=== PATIENT | male | born 1955 | race Caucasian/White ===

== ENCOUNTER 2017-02-20 15:43 | Inpatient (IN) | payer BC ==
[~2017-02-20] VITALS: Ht 193 cm; Wt 149.0 kg
--- NOTE | 2017-02-20 16:23 | NUR ---
EKG IN PROGRESS, DR HUFFMAN AT BEDSIDE FOR MSE
--- NOTE | 2017-02-20 16:37 | NUR ---
DR LOPEZ AT BEDSIDE
[2017-02-20 16:49] LABS: BASOPHIL % 0.4 % (0-2); PLATELET COUNT 217 x10^3mcL (130-400); RED CELL DISTRIBUTION WIDTH 13.6 % (11.5-14.5)
[2017-02-20 16:51] LABS: CALCIUM 8.3 mg/dL (8.5-10.1); CARBON DIOXIDE 26.1 mmol/L (21-32); CHLORIDE SERUM 106 mmol/L (98-107); CREATININE SERUM 1.1 mg/dL (0.7-1.3); GFR1 > 60 mL/min; GLUCOSE SERUM 88 mg/dL (74-106); POTASSIUM SERUM 4.3 mmol/L (3.5-5.1); SODIUM SERUM 139 mmol/L (136-145)
[2017-02-20 16:56] LABS: ALBUMIN 3.6 g/dL (3.4-5.0); ALKALINE PHOSPHATASE 94 U/L (46-116); ALT/SGPT 28 U/L (16-63); AST/SGOT 22 U/L (15-37); BILIRUBIN TOTAL 0.4 mg/dL (0.20-1.00); TOTAL PROTEIN, SERUM 6.7 g/dL (6.4-8.2)
--- NOTE | 2017-02-20 17:25 | NUR ---
PT TAKEN TO RADIOLOGY FOR CT
--- NOTE | 2017-02-20 18:04 | NUR ---
BACK FROM CT
[2017-02-20 18:46] LABS: CHOLESTEROL/HDL RATIO 4.3; PHOSPHOROUS 3.2 mg/dL (2.5-4.9)
--- NOTE | 2017-02-20 18:53 | NUR ---
PT ADMIT TO TELE BRIE 230B GAVE REPORT TO YU
[2017-02-20 18:56] LABS: FREE T4 0.87 ng/dL (0.76-1.46); FREE THYROXINE INDEX 2.1 ug/dL (1.4-4.5); T4(THYROXINE) 5.9 ug/dL (4.7-13.3)
--- NOTE | 2017-02-20 18:58 | NUR ---
REC'D PT FROM ER VIA [facility]. PT IS AAOX4. C/O MILD DIZZINESS. TELE #27 SR. RESP EVEN AND UNLABORED. NO SOB NOTED. PT C/O 2/10 CHEST PRESSURE. PT C/O LEFT ARM NUMBESS. 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 IV NOTED TO RAC. INTACT AND PATENT. ORIENTED PT TO CALL LIGHT. BED IN LOWEST POSITION. WILL ENDORSE TO PRIMARY RN.
[2017-02-20 19:19] LABS: T3 TOTAL 0.79 ng/mL
[2017-02-20] MEDS ORDERED: FLOMAX0.4 MG PO (19:21)
[2017-02-20 19:22] VITALS: BP 141/64
[2017-02-20] MEDS ORDERED: LORAZEPAM1 MG PO (19:22)
--- NOTE | 2017-02-20 20:00 | NUR ---
PT IS AAOX4. 27, NSR WITH A HR OF 87. LUNG SOUNDS ARE CTA ON RA. FAMILY AT BEDSIDE. THE PT IS IV ACCESS IN THE RAC, 20G THAT IS INFUSING 100 CC/HR OF NS. THE BED IS IN THE LOWEST POSITION, THE CALL LIGHT WITHIN REACH. WILL CONTINUE TO MONITOR.
[2017-02-20 20:24] VITALS: BP 120/70
[2017-02-20 21:31] LABS: microscopic required? NO
[2017-02-20 21:40] LABS: UA SPECIFIC GRAVITY <=1.005 (1.005-1.035); urine erythrocyte NEGATIVE (NEGATIVE)
--- NOTE | 2017-02-20 22:00 | NUR ---
PT IS RESTING IN BED WITH NO SIGNS OF ACUTE DISTRESS. EVEN, UNLABORED BREATHING. THE CALL LIGHT IS WITHIN REACH AND THE BED IS IN THE LOWEST POSITION. WILL CONTINUE TO MONITOR.
--- NOTE | 2017-02-21 | NUR ---
PT IS RESTING COMFORTABLY IN BED. NO ACUTE DISTRESS NOTED AT THIS TIME. BED IN LOWEST POSITION AND CALL LIGHT WITHIN REACH. WILL CONTINUE TO MONITOR.
--- NOTE | 2017-02-21 04:00 | NUR ---
PT RESTING IN BED COMFORTABLY IN BED. NO ACUTE DISTRESS NOTED AT THIS TIME. CALL LIGHT WITHIN REACH. WILL CONTINUE TO MONITOR.
[2017-02-21 05:28] VITALS: BP 114/64
--- NOTE | 2017-02-21 06:28 | NUR ---
PT IS RESTING COMFORTABLY IN BED. ALL NEEDS HAVE BEEN MET. THE CALL LIGHT IS WITHIN REACH. WILL ENDORSE TO MORNING SHIFT.
--- NOTE | 2017-02-21 06:45 | NUR ---
REPORT GIVEN TO SALOMON ENRIQUEZ. PT IN STABLE CONDITION. ROMEL CIFUENTES.
[2017-02-21 07:07] LABS: BASOPHIL % 0.3 % (0-2); PLATELET COUNT 185 x10^3mcL (130-400); RED CELL DISTRIBUTION WIDTH 13.7 % (11.5-14.5)
[2017-02-21 07:09] LABS: CALCIUM 7.9 mg/dL (8.5-10.1); CARBON DIOXIDE 24.1 mmol/L (21-32); CHLORIDE SERUM 108 mmol/L (98-107); CREATININE SERUM 1.1 mg/dL (0.7-1.3); GFR1 > 60 mL/min; GLUCOSE SERUM 95 mg/dL (74-106); PHOSPHOROUS 3.5 mg/dL (2.5-4.9); POTASSIUM SERUM 4.3 mmol/L (3.5-5.1); SODIUM SERUM 140 mmol/L (136-145)
[2017-02-21 09:12] VITALS: BP 127/56
--- NOTE | 2017-02-21 09:16 | NUR ---
PT ON BED, AWAKE, ALERT, AND ORIENTED. HAS NO COMPLAINT OF PAIN, SOB, OR DIZZINESS. RESPONDS WELL TO QUESTION AND ANSWER. CLEAR NEIL LUNG FIELD, SYMMETRICAL CHEST EXPANSION AND UNLABORED. NO GENERALIZED WEAKNESS NOTED. EQUAL STRENGTH. SIDE RAILS UP, CALL LIGHT WITHIN REACH, WILL CONTINUE TO MONITOR
[2017-02-21] MEDS ORDERED: ASPIR 8181 MG PO (10:41)
[2017-02-21] MEDS ORDERED: LIPI20 PO (10:44)
[2017-02-21 12:09] VITALS: BP 127/56
== END 2017-02-21 12:42 | disposition home or self-care (01) | DRG 69 ==
LOC: ED 15:43 → DU 18:06
PROVIDERS: Emergency Medicine; ADMIT Family Medicine
DX: G45.9 Transient cerebral ischemic attack, unspecified (principal); N17.0 Acute kidney failure with tubular necrosis; E86.0 Dehydration; M48.02 Spinal stenosis, cervical region; E83.51 Hypocalcemia; E78.1 Pure hyperglyceridemia; F41.9 Anxiety disorder, unspecified; N40.0 Benign prostatic hyperplasia without lower urinary tract symptoms; E87.8 Other disorders of electrolyte and fluid balance, not elsewhere classified
CPT/HCPCS: 83880; 84439; J1200; J7030; Q0092; Q9967

== ENCOUNTER 2017-10-09 16:09 | Emergency (ER) | payer BC ==
[~2017-10-09] VITALS: Ht 193 cm; Wt 148.9 kg
[~2017-10-09 16:09] MED LIST: ASPIR 8181 MG PO; FLOMAX0.4 MG PO; LIPI20 PO; LORAZEPAM1 MG PO
[2017-10-09 16:12] VITALS: Ht 193 cm; Wt 148.9 kg
[2017-10-09 17:08] LABS: BASOPHIL % 0.3 % (0-2); PLATELET COUNT 226 x10^3mcL (130-400); RED CELL DISTRIBUTION WIDTH 14.1 % (11.5-14.5)
[2017-10-09 17:17] LABS: CALCIUM 8.6 mg/dL (8.5-10.1); CARBON DIOXIDE 24.1 mmol/L (21-32); CREATININE SERUM 1.3 mg/dL (0.7-1.3); POTASSIUM SERUM 3.8 mmol/L (3.5-5.1)
[2017-10-09 17:21] LABS: ALBUMIN 3.8 g/dL (3.4-5.0); BILIRUBIN TOTAL 0.36 mg/dL (0.20-1.00); TOTAL PROTEIN, SERUM 6.7 g/dL (6.4-8.2)
[2017-10-09 17:56] LABS: UA SPECIFIC GRAVITY >=1.030 (1.005-1.035); microscopic required? YES; urine erythrocyte NEGATIVE (NEGATIVE)
[2017-10-09 18:40] VITALS: BP 138/89
== END 2017-10-09 18:40 | disposition home or self-care (01) ==
LOC: ED 16:09
PROVIDERS: Emergency Medicine
DX: R30.0 Dysuria (principal); N50.811 Right testicular pain; J45.909 Unspecified asthma, uncomplicated; Z87.438 Personal history of other diseases of male genital organs
CPT/HCPCS: J1885; J2270; J2405; Q0092